=== PATIENT | female | born 1990 | race Caucasian/White ===

== ENCOUNTER → 2017-04-21 | Outpatient (CLI) | payer MEDICAID, OTHER ==
[~2017-04-21] MED LIST: CLIN300C11 PO; DOCU100C37 PO; FERR-74 PO; IBUP-1773 PO
--- NOTE | 2017-04-21 17:09 | Diagnostic Imaging Report ---
INDICATION: survey. TECHNIQUE: Multiple real-time grayscale images were obtained over the gravid uterus. COMPARISON: None during this . FINDINGS: Single live intrauterine fetus is seen measuring at 20 weeks 4 days in size. survey showed no detectable abnormalities. Cervical length was 4.1 cm. Placenta is anterior with no evidence of previa. Fetus is in transverse presentation. heart rate was 125 beats per minute. Biometrical measurements are as follows: Biparietal 4.9 cm, age 20 weeks 6 days. Head circumference 17.99 cm, age 20 weeks 3 days. Abdominal circumference 14.97 cm, age 20 weeks 2 days. Femur length 3.39 cm, age 20 weeks 5 days. Sonographic estimate age: 20 weeks 4 days. Sonographic estimated date of delivery: 09/04/2017. Estimated Weight: 353 gm (+/- 52 gm). LMP percentile: 8%. heart rate: 125 beats per minute. number: 1 of 1. IMPRESSION: Single live intrauterine fetus measuring 20 weeks 4 days in size by composite measurements. There was no detectable abnormality. Dictated by: Dictated on workstation # [id number]
== END ==
LOC: RAD 16:27
PROVIDERS: ATTEND Obstetrics & Gynecology
DX: Z34.92 Encounter for supervision of normal pregnancy, unspecified, second trimester (principal); Z3A.20 20 weeks gestation of pregnancy
CPT/HCPCS: 76805

== ENCOUNTER → 2017-06-04 | Outpatient (CLI) | payer MEDICAID ==
[~2017-06-04] MED LIST changes: -FERR-74 PO; +FERR325T18 PO
--- NOTE | 2017-06-04 11:59 | Diagnostic Imaging Report ---
INDICATION: Small for gestational age. TECHNIQUE: Multiple real-time grayscale images were obtained over the gravid uterus. COMPARISON: 04/21/2017. FINDINGS: The previous OB ultrasound exam noted a single live fetus at approximately 20 weeks 4 days gestation +/-1 week. On this study, the fetus is again identified. The fetus is cephalic in presentation. heart motion was noted and a rate of 144 BPM was recorded. The growth parameters show that the estimated weight is in the 11th percentile. This does suggest borderline IUGR. A short-term (2-4 week) followup exam would be recommended for continued evaluation of the weight. There are no obvious abnormalities noted. The amniotic fluid volume is within normal limits. The placenta is anterior and there is no previa. IMPRESSION: 1. There is a single live fetus at approximately 27 weeks gestation +/-1.5 weeks. The EDC remains September 04, 2017. 2. There were no obvious abnormalities identified. 3. The estimated weight is in the 11 percentile and this would suggest borderline IUGR. Recommendations as above. Biometrical measurements are as follows: Biparietal 6.53 cm, age 26 weeks 3 days. Head circumference 25.11 cm, age 27 weeks 2 days. Abdominal circumference 21.65 cm, age 26 weeks 1 days. Femur length 5.17 cm, age 27 weeks 5 days. Sonographic estimate age: 27 weeks 0 days. Sonographic estimated date of delivery: 09-03-17. Estimated Weight: 982 gm (+/- 143 gm). LMP percentile: 11%. heart rate: 144 beats per minute. number: 1 of 1. Dictated by: Dictated on workstation # [id number]
== END ==
LOC: RAD 10:43
PROVIDERS: ATTEND Nurse Practitioner
DX: O36.5920 Maternal care for other known or suspected poor fetal growth, second trimester, not applicable or unspecified (principal); Z3A.27 27 weeks gestation of pregnancy
CPT/HCPCS: 76816

== ENCOUNTER → 2017-06-23 | Outpatient (CLI) | payer OTHER, MEDICAID ==
--- NOTE | 2017-06-23 17:09 | Diagnostic Imaging Report ---
TECHNIQUE: Multiple real-time grayscale images were obtained over the gravid uterus. INDICATION: Small for gestational age COMPARISON: Comparison is made to study of 06/04/2017. FINDINGS: Cobb intrauterine fetus is again identified with biometry indicating gestational age of 29 weeks. Fetus is in a cephalic presentation with normal amount of amniotic fluid. No gestational sac morphology or placental abnormality is seen. cardiac activity is present with rate 147 beats per minute. No maternal adnexal abnormality is documented. IMPRESSION: Unremarkable obstetric ultrasound. biometry indicates gestational age of 29 weeks which is approximately 10 days behind that predicted by patient's initial ultrasound exam. Dictated by: Dictated on workstation # [id number]
== END ==
LOC: RAD 16:21
PROVIDERS: ATTEND Obstetrics & Gynecology
DX: O26.843 Uterine size-date discrepancy, third trimester (principal); Z3A.29 29 weeks gestation of pregnancy
CPT/HCPCS: 76805

== ENCOUNTER → 2017-08-20 | Outpatient (CLI) | payer OTHER, MEDICAID ==
--- NOTE | 2017-08-20 15:48 | Diagnostic Imaging Report ---
INDICATION: Size and date discrepancy. TECHNIQUE: Multiple real-time grayscale images were obtained over the gravid uterus. COMPARISON: 06/23/2017. FINDINGS: There is a single live fetus in a cephalic presentation. The placenta is anterior. Amniotic fluid index is 10.9 cm. heart rate was recorded at 132 beats per minute. Biometry measurements are consistent with approximately 35 to 36 weeks gestational age. This does lag by approximately 1 to 2 weeks when compared with ultrasound from 06/23/2017 but this may be within normal statistical variation. Biophysical profile was performed with normal measurements of 12/31. Biometrical measurements are as follows: Biparietal 8.6 cm, age 34 weeks 5 days. Head circumference 31.43 cm, age 35 weeks 2 days. Abdominal circumference 31.48 cm, age 35 weeks 3 days. Femur length 7.21 cm, age 37 weeks 0 days. Sonographic estimate age: 35 weeks 5 days. Sonographic estimated date of delivery: 09/19/2017. Estimated Weight: 2748 gm (+/- 401 gm). LMP percentile: 7%. heart rate: 132 beats per minute. number: 1 of 1. IMPRESSION: Single live IUP at approximately 35 to 36 weeks gestational age (+/-1 to 2 weeks). No definite complicating features are identified. Biophysical profile score is normal at 8/8. Dictated by: Dictated on workstation # [id number]
== END ==
LOC: RAD 14:42
PROVIDERS: ATTEND Nurse Practitioner
DX: O26.843 Uterine size-date discrepancy, third trimester (principal); Z3A.35 35 weeks gestation of pregnancy
CPT/HCPCS: 76805; 76819

== ENCOUNTER → 2020-11-29 | Outpatient (CLI) | payer OTHER, MEDICAID ==
[~2020-11-29] MED LIST changes: +ACET-78 PO; -CLIN300C11 PO; +CLIN300C12 PO
== END ==
LOC: LAB 19:30
PROVIDERS: ATTEND Family Medicine
DX: Z53.9 Procedure and treatment not carried out, unspecified reason (principal)
CPT/HCPCS: 87636